=== PATIENT | female | born 1965 | race Caucasian/White ===

== ENCOUNTER 2018-09-14 09:37 | Emergency (ER) | payer MEDICAID ==
[~2018-09-14] VITALS: Ht 165.1 cm; Wt 55.3 kg
[2018-09-14 09:47] VITALS: BP_SYST 134
--- NOTE | 2018-09-14 09:55 | NUR ---
Patient to ER bed 5 to gown for evaluation. Side rails up. Report given to Reid EMERY.
--- NOTE | 2018-09-14 10:00 | NUR ---
Pt presents to ER s/p mechanical fall at home. Pt reports pain to R wrist, elbow, shoulder. No lacerations present, no deformity noted. Pt rates pain level 8/10 on pain scale, AOX4, denies chest pain / sob / nausea / vomiting. Pt ambulatory, no signs of acute distress.
--- NOTE | 2018-09-14 10:05 | NUR ---
ER at bedside examining patient.
--- NOTE | 2018-09-14 10:16 | NUR ---
Radiology at bedside.
[2018-09-14] MEDS ORDERED: IBUPROFEN 600 MG TABLET PO ONE ×2 (10:30→11:45)
--- NOTE | 2018-09-14 11:30 | NUR ---
Pt resting on gurney, no signs of distress, will continue to monitor.
--- NOTE | 2018-09-14 12:23 | NUR ---
Pt resting on gurney, no signs of distress, will continue to monitor.
[2018-09-14 13:00] VITALS: BP_SYST 134
--- NOTE | 2018-09-14 13:00 | NUR ---
Patient given written and verbal discharge instructions and verbalizes understanding. ER MD discussed with patient the results and treatment provided. Patient in stable condition. ID arm band removed. Rx of Ibuprofen & Varnell given. Patient educated on pain management and to follow up with PMD. Pain Scale 3/10. Opportunity for questions provided and answered. Medication side effect fact sheet provided.
== END 2018-09-14 13:00 | disposition home or self-care (01) ==
LOC: SED 09:37
DX: S62.001A Unspecified fracture of navicular [scaphoid] bone of right wrist, initial encounter for closed fracture (principal); S40.011A Contusion of right shoulder, initial encounter; S50.01XA Contusion of right elbow, initial encounter; S83.241A Other tear of medial meniscus, current injury, right knee, initial encounter; F41.9 Anxiety disorder, unspecified; Z90.49 Acquired absence of other specified parts of digestive tract; Z98.890 Other specified postprocedural states; W18.09XA Striking against other object with subsequent fall, initial encounter; Y93.89 Activity, other specified; Y92.009 Unspecified place in unspecified non-institutional (private) residence as the place of occurrence of the external cause; Y99.8 Other external cause status
CPT/HCPCS: 73030; 73564; 99284

== ENCOUNTER 2018-11-26 16:10 | Emergency (ER) | payer MEDICAID ==
[~2018-11-26] VITALS: Ht 160 cm; Wt 53.5 kg
[2018-11-26 16:20] VITALS: BP_SYST 129
--- NOTE | 2018-11-26 16:20 | NUR ---
Patient to ER bed 7 to gown for evaluation. Side rails up. Report given to Jero EMERY.
--- NOTE | 2018-11-26 16:25 | NUR ---
PATIENT SITTING UP ON BED. AAOX4. RESPIRATIONS EVEN AND UNLABORED. NO SOB. NO CHEST PAIN. PATIENT WITH C/O RIGHT SHOULDER, RIGHT HIP, AND RIGHT LOWER BACK PAIN SINCE LAST NIGHT. PER PT, SHE FEEL DOWN THE STAIRS APPROXIMATELY 6 STEPS. DENIES OF ANY HEAD TRAUMA OR KO. PT ABLE TO MOVE RIGHT SHOULDER WITH GOOD ROM. NO DEFORMITIES NOTED. REST AND RELAXATION ENCOURAGED. ICE PACK GIVEN FOR PAIN AND TOLERATING WELL. WILL CONTINUE TO MONITOR.
--- NOTE | 2018-11-26 16:29 | NUR ---
ER Dr. HANNON at bedside examining patient.
[2018-11-26 17:20] VITALS: BP_SYST 125
--- NOTE | 2018-11-26 17:20 | NUR ---
Patient given written and verbal discharge instructions and verbalizes understanding. ER MD discussed with patient the results and treatment provided. Patient in stable condition. ID arm band removed. Rx of MOTRIN given. Patient educated on pain management and to follow up with PMD. Pain Scale 5/10; TOLERABLE VERBALIZED. NO OBJECTIVE S/SX OF PAIN OBSERVED. Opportunity for questions provided and answered. Medication side effect fact sheet provided. PATIENT IN GOOD CONDITION AND IN NO ACUTE DISTRESS. NOTED WITH STEADY GAIT.
== END 2018-11-26 17:20 | disposition home or self-care (01) ==
LOC: SED 16:10
DX: S33.5XXA Sprain of ligaments of lumbar spine, initial encounter (principal); S70.01XA Contusion of right hip, initial encounter; M25.511 Pain in right shoulder; I10 Essential (primary) hypertension; F41.9 Anxiety disorder, unspecified; F17.200 Nicotine dependence, unspecified, uncomplicated; Z71.6 Tobacco abuse counseling; W01.0XXA Fall on same level from slipping, tripping and stumbling without subsequent striking against object, initial encounter; Y93.01 Activity, walking, marching and hiking; Y92.89 Other specified places as the place of occurrence of the external cause; Y99.8 Other external cause status
CPT/HCPCS: 72100-TC; 99283

== ENCOUNTER 2019-02-27 17:35 | Emergency (ER) | payer MEDICAID ==
[~2019-02-27] VITALS: Ht 165.1 cm; Wt 57.6 kg
[2019-02-27 17:50] VITALS: BP_SYST 104
[2019-02-27] MEDS ORDERED: ASPIRIN 325 MG TABLET PO ONE (19:15)
[2019-02-27 20:04] LABS: CALCIUM 8.6 mg/dL (8.4-11.0); CREATININE 0.88 mg/dL (0.55-1.30); POTASSIUM 3.7 mmol/L (3.5-5.1)
[2019-02-27 20:06] VITALS: BP_SYST 104
[2019-02-27 20:10] LABS: INR 0.9 (0.8-1.2); PROTHROMBIN TIME 9.6 SECS (9.5-12.5)
[2019-02-27 20:12] LABS: ALBUMIN 3.1 g/dL (3.4-4.8); HEMOGLOBIN 12.1 g/dL (12.0-16.0); RED BLOOD CELL COUNT(AUTO) 3.79 MIL/uL (4.2-6.2); TOTAL BILIRUBIN 0.2 mg/dL (0.0-1.0); WHITE BLOOD COUNT (AUTO) 9.9 K/uL (4.8-10.8)
[2019-02-27 20:13] LABS: BASOPHILS % (AUTO) 0.6 % (0.0-2.0); EOSINOPHILS % (AUTO) 4.1 % (0.0-4.0); HEMATOCRIT 35.7 % (36-48); LYMPHOCYTES # (AUTO) 4.6 K/uL (1.0-5.5); LYMPHOCYTES % (AUTO) 46.4 % (20.5-51.5); MEAN CORPUSCULAR HEMOGLOBIN 32 pg (27-31); MEAN CORPUSCULAR HGB CONC 34 % (32-36); MEAN CORPUSCULAR VOLUME 94 fL (79.0-98.0); MONOCYTES # (AUTO) 0.6 K/uL (0.0-1.0); MONOCYTES % (AUTO) 5.8 % (1.7-9.3); NEUTROPHILS # (AUTO) 4.3 K/uL (1.8-7.7); NEUTROPHILS % (AUTO) 43.1 % (40.0-70.0); PLATELET COUNT (AUTO) 236 K/uL (130-430); RED CELL DISTRIBUTION WIDTH 13.7 % (9.0-15.0)
[2019-02-27 20:14] LABS: BASOPHILS # (AUTO) 0.1 K/uL (0.0-0.2); EOSINOPHILS # (AUTO) 0.4 K/uL (0.0-0.4)
== END 2019-02-27 20:06 | disposition short-term general hospital (02) ==
LOC: SED 17:35
DX: R53.1 Weakness (principal); F41.9 Anxiety disorder, unspecified; I10 Essential (primary) hypertension; V43.62XA Car passenger injured in collision with other type car in traffic accident, initial encounter; Y93.89 Activity, other specified; Y92.410 Unspecified street and highway as the place of occurrence of the external cause; Y99.8 Other external cause status
CPT/HCPCS: 36415; 71045; 72170-TC; 80053; 82550-TC; 83880; 84484; 85025; 85379; 85610-TC; 85730-TC; 93005; 99285

== ENCOUNTER 2019-07-30 20:38 | Inpatient (IN) | payer MEDICAID ==
[~2019-07-30] VITALS: Ht 165.1 cm; Wt 58.5 kg
--- NOTE | 2019-07-30 20:40 | NUR ---
Placed in room 8 . Placed on monitor technician, blood pressure machine and pulse oximeter. To gown for exam. Side rails up.
--- NOTE | 2019-07-30 20:45 | NUR ---
PT CAME TO THE ED FOR L SIDED CHEST PAIN WHICH BEGAN 1 HOUR PRIOR TO ARRIVAL. PT WHO IS DEAF AND MOSTLY OF L SIDED CHEST PAIN WHICH STARTED 1 HOUR PRIOR TO ARRIVAL. REPORTS THAT SHE TOOK 2 NITROS WITH NO RELIEF. PAIN IS DESCRIBED AT SQUEEZING WITH L ARM PAIN AND JAW PAIN. DENIES N/V/D OR FEVER. WILL CONT. TO MONITOR.
[2019-07-30 20:46] VITALS: BP_SYST 103
[2019-07-30] MEDS ORDERED: ASPIRIN 325 MG TABLET PO ONE (21:00)
[2019-07-30 21:45] LABS: BASOPHILS % (AUTO) 0.4 % (0.0-2.0); EOSINOPHILS # (AUTO) 0.3 K/uL (0.0-0.4); EOSINOPHILS % (AUTO) 2.9 % (0.0-4.0); HEMATOCRIT 36.6 % (36-48); HEMOGLOBIN 12.5 g/dL (12.0-16.0); LYMPHOCYTES % (AUTO) 46.7 % (20.5-51.5); MEAN CORPUSCULAR HEMOGLOBIN 33 pg (27-31); MEAN CORPUSCULAR HGB CONC 34 % (32-36); MEAN CORPUSCULAR VOLUME 98 fL (79.0-98.0); MONOCYTES # (AUTO) 0.6 K/uL (0.0-1.0); MONOCYTES % (AUTO) 6.9 % (1.7-9.3); NEUTROPHILS # (AUTO) 3.7 K/uL (1.8-7.7); NEUTROPHILS % (AUTO) 43.1 % (40.0-70.0); PLATELET COUNT (AUTO) 204 K/uL (130-430); RED BLOOD CELL COUNT(AUTO) 3.75 MIL/uL (4.2-6.2); RED CELL DISTRIBUTION WIDTH 13.3 % (9.0-15.0); WHITE BLOOD COUNT (AUTO) 8.7 K/uL (4.8-10.8)
[2019-07-30] MEDS ORDERED: NACL 0.9% 1,000 ML IV ONE (21:45)
[2019-07-30] MEDS ORDERED: MORPHINE 2 MG/ML INJ. SYRINGE IVP ONE (21:45)
[2019-07-30 21:49] LABS: CREATININE 0.84 mg/dL (0.55-1.30)
[2019-07-30 21:53] LABS: POTASSIUM 2.8 mmol/L (3.5-5.1)
[2019-07-30 21:55] LABS: ALBUMIN 3.4 g/dL (3.4-4.8); TOTAL BILIRUBIN 0.3 mg/dL (0.0-1.0)
[2019-07-30 22:02] LABS: CALCIUM 8.5 mg/dL (8.4-11.0)
--- NOTE | 2019-07-30 22:16 | NUR ---
ER Dr. Mcclure at bedside examining patient.
--- NOTE | 2019-07-30 22:20 | NUR ---
Pt states that she has epigastric pain 20 mins after administration of morphine 2mg IVP. Dr. Mcclure at bedside evaluating pt.
[2019-07-30] MEDS ORDERED: POTASSIUM CHLORIDE 10 MEQ TAB.PRT.SR PO ONE (22:30)
--- NOTE | 2019-07-30 22:32 | NUR ---
REPEAT EKG DONE PER MD ORDER.
--- NOTE | 2019-07-30 22:37 | NUR ---
DR. NICHOLS STATES TO HOLD POTASSIUM TILL PT IS "CALM'.
--- NOTE | 2019-07-30 22:38 | NUR ---
PT APPEARS TO BE CALM, LAYING IN BED WITH AT BEDSIDE. NO SIGNS OF ACUTE DISTRESS. HR IS 83, 147/84, 92 O2, 23 RR. ER MD MADE AWARE.
[2019-07-30 23:05] LABS: BILIRUBIN,URINE NEGATIVE (NEGATIVE); BLOOD, URINE 1+ (NEGATIVE); CLARITY/URINE CLEAR (CLEAR); COLOR,URINE YELLOW (YELLOW); GLUCOSE,URINE NEGATIVE (NEGATIVE); KETONES,URINE NEGATIVE (NEGATIVE); LEUKOCYTE ESTERASE ,URINE NEGATIVE (NEGATIVE); NITRITE, URINE NEGATIVE (NEGATIVE); PROTEIN URINE NEGATIVE (NEGATIVE); UROBILINOGEN,URINE 0.2 (0.2-1.0)
[2019-07-30] MEDS ORDERED: POTASSIUM CHLORIDE 20 MEQ/PKT PACKET PO ONE (23:15)
[2019-07-30 23:16] LABS: BACTERIA,URINE RARE /HPF (None Seen); WBC,URINE 0-3 /HPF (0-3)
--- NOTE | 2019-07-30 23:30 | NUR ---
Gave pt turkey sandwich and juice.
[2019-07-31] MEDS ORDERED: PARoxetine HCL 20 MG TABLET PO ONE (00:15)
[2019-07-31] MEDS ORDERED: traZODone HCL 50 MG TABLET (DESYREL) PO ONE (00:15)
[2019-07-31] MEDS ORDERED: traZODone HCL 50 MG TABLET (DESYREL) ONE (00:38)
[2019-07-31] MEDS ORDERED: ACETAMINOPHEN 325 MG TABLET PO PRN (01:00)
[2019-07-31] MEDS ORDERED: traMADol HCL HCL 50 MG TABLET (ULTRAM) PO PRN (01:00)
[2019-07-31] MEDS ORDERED: TRAZ-219 PO (01:05)
[2019-07-31] MEDS ORDERED: CLON0.5T12 PO (01:05)
[2019-07-31] MEDS ORDERED: PARO40TA80 PO (01:05)
[2019-07-31] MEDS ORDERED: PARO-41 PO (01:05)
[2019-07-31] MEDS ORDERED: ASPI-1153 PO (01:05)
[2019-07-31] MEDS ORDERED: AMLO2.5T2 PO (01:05)
--- NOTE | 2019-07-31 01:06 | NUR ---
Patient will be admitted to care of dr. estrada. Admitted to tele unit. Will go to room 135. Belongings list completed. Summary report printed. Report will be given at bedside.
--- NOTE | 2019-07-31 01:16 | NUR ---
Medication reconciliation completed with information provided by . Any prior medication reconciliation on file was reviewed and corrected.
--- NOTE | 2019-07-31 01:18 | NUR ---
called [facility] for bed. waiting for call back.
--- NOTE | 2019-07-31 01:30 | NUR ---
called [facility] for update for bed, CN will call back.
--- NOTE | 2019-07-31 02:05 | NUR ---
Transfer to tele via ACLS protocol. Licensed nurse present. IV present no signs or symptoms of infiltration.
--- NOTE | 2019-07-31 02:05 | NUR ---
Patient AAOx4, resting comfortably in bed. No SOB, no acute distress, no complaints of pain at this time. Jus- at the bedside. Patient IV site intact, dressing clean and dry, saline locked. Bed is locked, in the lowest position, 2x side rails up, bed alarm is on. Provided patient with turkey sandwich and red jell-o per patient request. Call light is within reach. Encouraged patient to call for assistance.
--- NOTE | 2019-07-31 02:05 | NUR ---
ADMISSION NOTE Received patient from ER via van, received report from mannie EMERY. Patient admitted with diagnosis of chest pain. Patient oriented to hospital routine, call light, toileting and safety-patient verbalized understanding.
[2019-07-31 02:12] VITALS: BP_SYST 126
--- NOTE | 2019-07-31 02:30 | NUR ---
Patient states she is hard of hearing, but she does not have her hearing aids at the moment. States her hearing aids are at home, and that it has been out of batter "for some time."
--- NOTE | 2019-07-31 04:00 | NUR ---
Patient resting comfortably in bed with eyes closed, laying on her right side. No SOB, no acute distress, no signs of pain or facial grimacing noted. Bed is locked, in the lowest position, 2x side rails up, bed alarm is on. Sinus rhythm on the tele monitor. Call light is within reach.
--- NOTE | 2019-07-31 06:02 | NUR ---
CONSULTATION PAGED/CALLED Reason for Consultation: CP Person Who was Notified: MARIANELA Consulting Physician: DR. MARTIN; DR. WALSH CHECKER CASHIER Thermodynamic Physicist Specialty: CARDIO Ordering Physician: DR JARAMILLO
--- NOTE | 2019-07-31 06:56 | NUR ---
Closing Notes Patient resting comfortably in bed, eyes closed. breathing even and unlabored with visible chest rise and fall noted. IV site intact, Dressing clean and dry, saline locked. No SOB, no acute distress, no signs of pain at this time. Bed is locked, in the lowest position, 2x side rails up, bed alarm is on. Call light is within reach. Safety precautions maintained. All needs have been met during this shift. Will endorse care to oncoming dayshift nurse.
--- NOTE | 2019-07-31 07:15 | NUR ---
Received patient from [facility] shift nurse. Patient sleeping in bed in no acute distress. Side rails x 2 up. Call light with in reach.
[2019-07-31 07:44] LABS: BASOPHILS % (AUTO) 0.8 % (0.0-2.0); EOSINOPHILS # (AUTO) 0.2 K/uL (0.0-0.4); EOSINOPHILS % (AUTO) 2.9 % (0.0-4.0); HEMATOCRIT 34.7 % (36-48); HEMOGLOBIN 11.8 g/dL (12.0-16.0); LYMPHOCYTES # (AUTO) 2.2 K/uL (1.0-5.5); LYMPHOCYTES % (AUTO) 34.6 % (20.5-51.5); MEAN CORPUSCULAR HEMOGLOBIN 33 pg (27-31); MEAN CORPUSCULAR HGB CONC 34 % (32-36); MEAN CORPUSCULAR VOLUME 98 fL (79.0-98.0); MONOCYTES # (AUTO) 0.4 K/uL (0.0-1.0); MONOCYTES % (AUTO) 6.7 % (1.7-9.3); NEUTROPHILS # (AUTO) 3.5 K/uL (1.8-7.7); PLATELET COUNT (AUTO) 186 K/uL (130-430); RED BLOOD CELL COUNT(AUTO) 3.55 MIL/uL (4.2-6.2); RED CELL DISTRIBUTION WIDTH 13.3 % (9.0-15.0); WHITE BLOOD COUNT (AUTO) 6.3 K/uL (4.8-10.8)
[2019-07-31 07:54] LABS: ANION GAP 10 (5-15); CALCIUM 7.9 mg/dL (8.4-11.0); CHLORIDE 115 mmol/L (98-107); CREATININE 0.69 mg/dL (0.55-1.30); GLUCOSE 95 mg/dL (70-99); POTASSIUM 3.9 mmol/L (3.5-5.1); SODIUM SERUM 146 mmol/L (136-145); UREA NITROGEN, BLOOD 6 mg/dL (8-21)
[2019-07-31 08:00] VITALS: BP_SYST 129
[2019-07-31 08:06] LABS: GFR AFRICAN AMERICAN 114 mL/min (>90)
[2019-07-31 08:09] LABS: ALANINE AMINOTRANSFERASE 93 U/L (12-78); ALBUMIN 2.7 g/dL (3.4-4.8); ASPARTATE AMINOTRANSFERASE 113 U/L (10-37); FREE T4 (FREE THYROXINE) 0.9 ng/dl (0.8-1.5); THYROID STIMULATING HORMONE 0.11 uIu/mL (0.36-3.74); TOTAL BILIRUBIN 0.2 mg/dL (0.0-1.0)
--- NOTE | 2019-07-31 08:20 | NUR ---
Patient awake and alert sitting in bed eating breakfast. Requesting IV site change due to unable to bend arm.
[2019-07-31 08:54] LABS: CHOLESTEROL 85 mg/dL (<200); TRIGLYCERIDES 72 mg/dL (30-150)
[2019-07-31 08:55] LABS: HDL CHOLESTEROL 31 mg/dL (>55); LDL CHOLESTEROL 42 mg/dL (<100)
[2019-07-31] MEDS ORDERED: POTASSIUM CHLORIDE 20 MEQ TAB.PRT.SR PO SCH (09:00)
[2019-07-31] MEDS ORDERED: ASPIRIN 81 MG TABLET(ECOTRIN) PO SCH (09:00)
[2019-07-31] MEDS ORDERED: PANTOPRAZOLE SODIUM 40 MG TAB PO SCH (09:00)
--- NOTE | 2019-07-31 10:00 | NUR ---
Patient awake and alert in bed. No c/o pain.
[2019-07-31 10:21] LABS: BARBITURATE, URINE NEGATIVE (NEG <=200); BENZODIAZEPINE, URINE NEGATIVE (NEG <=150); CANNABINOID, URINE NEGATIVE (NEG <=50); COCAINE, URINE NEGATIVE (NEG <=150); METHAMPHETAMINES SCREEN,URINE NEGATIVE (NEG <=500); OPIATE, URINE NEGATIVE (NEG <=100); PHENCYCLIDINE SCREEN,URINE NEGATIVE (NEG <=25); UR TRICYCLIC ANTIDEPRESSANTS NEGATIVE (NEG <=300); URINE AMPHETAMINE NEGATIVE (NEG <=500); URINE METHADONE NEGATIVE (NEG <=200); URINE OXYCODONE SCREEN NEGATIVE (NEG <=100); URINE PROPOXYPHENE SCREEN NEGATIVE (NEG <=300)
--- NOTE | 2019-07-31 12:00 | NUR ---
Ultrasound being performed at bedside. Pt states no pain or distress at this time.
[2019-07-31 12:47] VITALS: BP_SYST 128
[2019-07-31] MEDS ORDERED: clonazePAM 0.5 MG TABLET PO SCH (15:00)
[2019-07-31 16:36] VITALS: BP_SYST 120
--- NOTE | 2019-07-31 18:20 | NUR ---
Dr. John made rounds on pt and states she is clear for discharge home.
[2019-07-31 18:32] VITALS: BP_SYST 125
--- NOTE | 2019-07-31 19:04 | NUR ---
D/C Patient Patient given medication reconciliation form and D/C instructions. Exit Care provided. Patient verbalized understanding. MD discussed with patient the results and treatment provided. Ambulatory with steady gait for discharge to home. Patient in stable condition, ID band removed. IV catheter removed, intact and dressing applied, no active bleeding. No new Rx given. Patient educated on pain management. All belongings sent with patient. Patient ambulate with steady gait accompanied by . Patient discharge home via private auto.
[2019-07-31] MEDS ORDERED: traZODone HCL 50 MG TABLET (DESYREL) PO SCH (21:00)
[2019-08-01] MEDS ORDERED: ASPIRIN 81 MG TABLET(ECOTRIN) PO SCH (09:00)
[2019-08-01] MEDS ORDERED: PARoxetine HCL 20 MG TABLET PO SCH (09:00)
[2019-08-01] MEDS ORDERED: amLODIPine BESYLATE 5 MG TABLET PO SCH (09:00)
== END 2019-07-31 19:11 | disposition home or self-care (01) | DRG 198 ==
LOC: SED 20:38 → STU 07-31 01:09
PROVIDERS: ADMIT Internal Medicine; ATTEND Internal Medicine
DX: R07.89 Other chest pain (principal); I25.10 Atherosclerotic heart disease of native coronary artery without angina pectoris; F17.200 Nicotine dependence, unspecified, uncomplicated; I10 Essential (primary) hypertension; F41.9 Anxiety disorder, unspecified; Z90.49 Acquired absence of other specified parts of digestive tract; I25.2 Old myocardial infarction; Z90.722 Acquired absence of ovaries, bilateral; Z79.899 Other long term (current) drug therapy
CPT/HCPCS: 36415; 71045; 74018; 76700-TC; 80053; 80061; 80307; 81000-TC; 82550-TC; 83735-TC; 83880; 84439; 84443-TC; 84484; 85025; 85379; 85610-TC; 93005; 93306; 96361; 96374; 99285; G0378; J2270